=== PATIENT | female | born 1965 | race African-American/Black ===

== ENCOUNTER 2022-11-15 11:57 | Inpatient (IN) | payer OTHER ==
[~2022-11-15] VITALS: Ht 165.1 cm; Wt 85.0 kg
[2022-11-15 12:54] LABS: BASOPHILS % 0.5 % (0.0-2.0); EOSINOPHILS % 0.8 % (0.0-5.0); HEMATOCRIT. 39.9 % (36.0-48.0); HEMOGLOBIN. 13.6 g/dL (12.0-16.0); LYMPHOCYTES % 24.3 % (20.0-50.0); MEAN CORPUSCULAR HEMOGLOBIN 28.2 pg (28.0-32.0); MEAN PLATELET VOLUME 9.3 fl (7.4-10.4); MONOCYTES % 8.2 % (2.0-8.0); NEUTROPHILS % 66.2 % (40.0-76.0); PLATELET 180 x1000/uL (130-400); RED BLOOD CELL COUNT 4.81 mill/uL (4.2-5.4); RED CELL DISTRIBUTION WIDTH 15.4 % (11.6-14.6); WHITE BLOOD COUNT 8.9 x1000/uL (4.5-11.0)
[2022-11-15 13:11] LABS: CHLORIDE 99 mEq/L (98-107); INDEX HEMOLYSI 1 (1-3); INDEX ICTERIC 1 (1-4); INDEX LIPEMIC 1 (1-3); POTASSIUM 3.6 mEq/L (3.5-5.1); SODIUM 130 mEq/L (136-145)
[2022-11-15 13:21] LABS: ALANINE AMINOTRANSFERASE 24 IU/L (13-61); ALBUMIN 3.2 g/dL (3.4-5.0); ASPARTATE AMINOTRANSFERASE 75 IU/L (15-37); BILIRUBIN TOTAL 0.5 mg/dL (0.1-1.0); CALCIUM 8.6 mg/dL (8.5-10.1); CARBON DIOXIDE 24 mEq/L (21-32); CREATININE 0.6 mg/dL (0.6-1.3); GLUCOSE 387 mg/dL (70-105); NT PRO B-TYPE NATRIURETIC PEP 2098 pg/mL (5-125); PROTEIN TOTAL 8.2 g/dL (6.0-8.3); UREA NITROGEN BLOOD 11 mg/dL (7-21)
[2022-11-15 14:46] LABS: TROPONIN I HIGH SENSITIVITY 8217 ng/L (<54)
[2022-11-15] MEDS ORDERED: ASPIRIN 325MG EC TABLET PO ONE (15:00)
[2022-11-15] MEDS ORDERED: HEPARIN 5000 UNITS/ML VIAL IV SCH (15:00)
[2022-11-15] MEDS ORDERED: HEPARIN 25,000 UNITS PREMIX 250 ML IV PRN ×2 (15:00→15:45)
[2022-11-15] MEDS ORDERED: HEPARIN 5000 UNITS/ML VIAL IV PRN ×2 (15:00)
[2022-11-15 15:34] LABS: PROTHROMBIN TIME 10.6 sec (9.6-11.0)
[2022-11-15] MEDS ORDERED: HEPARIN BOLUS PRN aPTT <30 IV (15:45)
[2022-11-15] MEDS ORDERED: CLOPIDOGREL 75MG TABLET PO ONE (15:45)
[2022-11-15] MEDS ORDERED: HEPARIN BOLUS PRN aPTT 30-44 IV (15:45)
[2022-11-15] MEDS ORDERED: HEPARIN 60 UNITS/KG BOLUS IV NR (15:45)
[2022-11-15 15:52] LABS: CLARITY URINE CLEAR (CLEAR); COLOR URINE YELLOW (YELLOW); GLUCOSE URINE 3+ (NEGATIVE); KETONES URINE TRACE (NEGATIVE); LEUKOCYTE ESTERASE URINE NEGATIVE (NEGATIVE); NITRITE URINE NEGATIVE (NEGATIVE); OCCULT BLOOD URINE NEGATIVE (NEGATIVE); PH URINE 5.5 (4.5-8.0); PROTEIN URINE TRACE (NEGATIVE); SPECIFIC GRAVITY URINE 1.028 (1.005-1.030); UROBILINOGEN URINE 0.2 E.U./dL (0.2-1.0)
[2022-11-15 15:54] LABS: YEAST URINE NONE SEEN
[2022-11-15 16:16] LABS: BACTERIA URINE 1+; RBC URINE 0-2 /hpf (0-2); SQUAMOUS EPITHELIAL CELL URINE 1+ /lpf (RARE/1+); WBC URINE 0-2 /hpf (0-2)
[2022-11-15 17:39] LABS: TROPONIN I HIGH SENSITIVITY 9147 ng/L (<54)
[2022-11-15] MEDS ORDERED: DEXTROSE 50% WATER 50ML SYRINGE IV PRN (19:45)
[2022-11-15] MEDS ORDERED: DIPHENHYDRAMINE 50MG/ML VIAL IV PRN (19:45)
[2022-11-15] MEDS ORDERED: ACETAMINOPHEN 325MG TABLET PO PRN ×2 (19:45)
[2022-11-15] MEDS ORDERED: CLONIDINE 0.1MG TABLET PO PRN (19:45)
[2022-11-15] MEDS ORDERED: ONDANSETRON HCL 4MG/2ML INJ IV PRN (19:45)
[2022-11-15 21:00] VITALS: BP 134/70; PULSE 82; RESP 18; TEMP 97.9
[2022-11-15] MEDS ORDERED: ZOLPIDEM TARTRATE 5MG TABLET PO PRN (21:00)
[2022-11-15] MEDS: BLOOD SUGAR DIAGNOSTIC STRIP TEST SCH (21:04)
[2022-11-15] MEDS: SODIUM CHLORIDE 0.9% INJ 3ML FLUSH IVF SCH (21:21)
[2022-11-15] MEDS: INSULIN LISPRO 100 UNITS/ML SUBCUT SCH (21:22)
[2022-11-16] VITALS: BP 108/54; PULSE 83; RESP 20; TEMP 96.9
[2022-11-16 04:00] VITALS: BP 122/73; PULSE 88; RESP 18; TEMP 97.1
[2022-11-16] MEDS ORDERED: METF500S9 PO (05:15)
[2022-11-16] MEDS: SODIUM CHLORIDE 0.9% INJ 3ML FLUSH IVF SCH ×3 (05:50→21:23)
[2022-11-16] MEDS: BLOOD SUGAR DIAGNOSTIC STRIP TEST SCH ×4 (06:08→20:50)
[2022-11-16] MEDS: INSULIN LISPRO 100 UNITS/ML SUBCUT SCH ×4 (06:08→21:23)
[2022-11-16 08:00] VITALS: BP 113/71; PULSE 89; RESP 18; TEMP 98.1
[2022-11-16 11:51] LABS: TROPONIN I HIGH SENSITIVITY 6671 ng/L (<54)
[2022-11-16 12:00] VITALS: BP 126/74; PULSE 88; RESP 18; TEMP 98.1
[2022-11-16] MEDS: CLOPIDOGREL 75MG TABLET PO SCH (14:18)
[2022-11-16 16:00] VITALS: BP 125/74; PULSE 85; RESP 18; TEMP 98.4
[2022-11-16] MEDS: ENOXAPARIN 80MG/0.8ML SYR SUBCUT SCH (18:38)
[2022-11-16 20:00] VITALS: BP 102/64; PULSE 80; RESP 18; TEMP 98.8
[2022-11-16] MEDS: ATORVASTATIN CALCIUM 40MG TABLET PO SCH (21:22)
[2022-11-17 04:00] VITALS: BP 109/56; PULSE 87; RESP 18; TEMP 97.5
[2022-11-17] MEDS: SODIUM CHLORIDE 0.9% INJ 3ML FLUSH IVF SCH ×3 (05:15→21:06)
[2022-11-17] MEDS: ENOXAPARIN 80MG/0.8ML SYR SUBCUT SCH ×2 (05:16→17:14)
[2022-11-17] MEDS: BLOOD SUGAR DIAGNOSTIC STRIP TEST SCH ×4 (06:59→21:00)
[2022-11-17] MEDS: INSULIN LISPRO 100 UNITS/ML SUBCUT SCH ×4 (07:33→21:05)
[2022-11-17 08:00] VITALS: BP 129/75; PULSE 100; RESP 18; TEMP 97.3
[2022-11-17] MEDS: CLOPIDOGREL 75MG TABLET PO SCH (08:07)
[2022-11-17] MEDS: ASPIRIN 81MG TABLET PO SCH (08:07)
[2022-11-17] MEDS: INSULIN GLARGINE 100 UNITS/ML SUBCUT SCH (10:38)
[2022-11-17 12:00] VITALS: BP 103/76; PULSE 91; RESP 20; TEMP 99
[2022-11-17 16:00] VITALS: BP 105/59; PULSE 83; RESP 18; TEMP 98.1
[2022-11-17 20:00] VITALS: BP 110/70; PULSE 85; RESP 19; TEMP 98.2
[2022-11-17] MEDS: ATORVASTATIN CALCIUM 40MG TABLET PO SCH (21:04)
[2022-11-18] VITALS: BP_SYST 123; BP_SYST 136; BP_DIAS 74; BP_DIAS 75; PULSE 71; PULSE 85; RESP 18; RESP 19; TEMP 98.1; TEMP 99.7
[2022-11-18 04:00] VITALS: BP 106/57; PULSE 66; RESP 19; TEMP 98.8
[2022-11-18] MEDS: ENOXAPARIN 80MG/0.8ML SYR SUBCUT SCH (05:07)
[2022-11-18] MEDS: SODIUM CHLORIDE 0.9% INJ 3ML FLUSH IVF SCH ×2 (05:07→14:10)
[2022-11-18] MEDS: BLOOD SUGAR DIAGNOSTIC STRIP TEST SCH ×2 (06:31→11:57)
[2022-11-18] MEDS: INSULIN LISPRO 100 UNITS/ML SUBCUT SCH ×2 (06:43→12:34)
[2022-11-18 08:00] VITALS: BP 133/73; PULSE 99; RESP 19; TEMP 97
[2022-11-18] MEDS: CLOPIDOGREL 75MG TABLET PO SCH (08:29)
[2022-11-18] MEDS: ASPIRIN 81MG TABLET PO SCH (08:29)
[2022-11-18] MEDS: INSULIN GLARGINE 100 UNITS/ML SUBCUT SCH (09:58)
[2022-11-18 12:00] VITALS: BP 135/75; PULSE 98; RESP 20; TEMP 98
[2022-11-18 14:23] VITALS: BP 133/73; PULSE 99; TEMP 97; O2SAT 97
[2022-11-18 15:49] VITALS: BP 138/79; PULSE 95; RESP 19; TEMP 98.4
== END 2022-11-18 17:40 | disposition home or self-care (01) | DRG 282 ==
LOC: ER 12:58 → 8WST 17:35 → EDBEDREQTM 18:21 → EDBEDREQ 18:21
PROVIDERS: ADMIT Internal Medicine; ATTEND Internal Medicine
DX: I21.4 Non-ST elevation (NSTEMI) myocardial infarction (principal); I10 Essential (primary) hypertension; Z20.822 Contact with and (suspected) exposure to COVID-19; E78.00 Pure hypercholesterolemia, unspecified; E11.9 Type 2 diabetes mellitus without complications; Z79.899 Other long term (current) drug therapy
CPT/HCPCS: 36415; 71045; 80053; 81003; 82962; 83036; 83880; 84484; 85025; 87426; 93005; 93306; 99291; J1644; J1650; J1815